=== PATIENT | male | born 1960 | race Caucasian/White ===

== ENCOUNTER → 2016-06-29 | Day surgery (SDC) | payer MEDICAID ==
[~2016-06-29] MED LIST: FLEXERIL10 MG PO; MULTI VITAMIN1 EACH PO; NO MEDICATIONS; VOLTAREN50 MG PO
--- NOTE | ~2016-06-29 | OR ---
Unit #: [id number] #: [id number] Patient: CAIN CALDWELL [id number] [address] [place], [place] [address] [id number] O MR#: [id number] NAME: CAIN CALDWELL ROOM: Date of Procedure: 06/29/2016 Admission Date: 06/29/2016 Surgeon: Popeye Gates M.D. : 1960 Attending Physician: Popeye Gates M.D. Primary Care Physician: Primary Care Physician No OPERATIVE REPORT PROCEDURE PERFORMED Colonoscopy with snare polypectomy. INDICATIONS FOR PROCEDURE The patient with average risk for colorectal cancer, here for screening colonoscopy. MEDICATIONS Monitored anesthesia. POSTOPERATIVE FINDINGS Polyp, sigmoid colon, 5 to 6 mm, snared and sent for histopathology. Rest of the colon exam to cecum was normal. PLAN Repeat colonoscopy in 5 years if adenomatous. DESCRIPTION OF PROCEDURE The patient was explained of the procedure, risks, and benefits along with risks and benefits of anesthesia. He was brought to the endoscopy room. Propofol anesthesia was given. Rectal exam was done, which was normal. Colonoscope was lubricated, passed up the rectum, advanced under direct vision all the way to cecum. Cecum was identified by ileocecal valve and appendiceal orifice. I then started to pull the scope out carefully looking. Polyp in sigmoid colon was snared and sent for histopathology. I retroflexed in the rectum, small hemorrhoids seen. Scope was gently pulled out. He tolerated it well. Dictated by... Jasiel Campos/charisma TD: 06/30/2016 00:08 JOB #: [id number] CC: Ivania Cuellar M.D. Unit #: [id number] #: [id number] Patient: CAIN CALDWELL OPERATIVE REPORT Page 1 of 1 X Popeye Gates MD X PROCEDURE OPERATIVE NOTE
== END | disposition home or self-care (01) ==
LOC: COPS 11:26
PROVIDERS: Internal Medicine
PROC: 0DBN8ZX Excision of Sigmoid Colon, Via Natural or Artificial Opening Endoscopic, Diagnostic (ICD-10-PCS; principal; 2016-06-29 13:00)
DX: Z12.11 Encounter for screening for malignant neoplasm of colon (principal); K63.5 Polyp of colon; K64.9 Unspecified hemorrhoids; F17.200 Nicotine dependence, unspecified, uncomplicated; Z88.8 Allergy status to other drugs, medicaments and biological substances; Z79.899 Other long term (current) drug therapy
CPT/HCPCS: 88305; J2250

== ENCOUNTER 2016-07-03 16:37 | Emergency (ER) | payer MEDICAID ==
--- NOTE | ~2016-07-03 | US115 ---
[facility] A Service of [facility] RADIOLOGY TEXT RESULTS PATIENT: CAIN CALDWELL LOCATION: [facility] : 58 UNIT #: [id number] AGE: [address]: Emmy Villarreal MD SEX: M ORDER DR: [id number] [facility] [address] [place], [place] [address] [id number] E MR#: [id number] Acc #: [id number] NAME: CAIN CALDWELL : 1960 SEX: M STUDY DATE/TIME: 07/03/2016 17:29 UNIT: [facility] ROOM: STUDY DESCRIPTION: US Scrotum and Contents Attending Physician: Emmy Villarreal M.D. Ordering Physician: Emmy Villarreal M.D. Primary Care Physician: Ivania Cuellar M.D. MEDICAL IMAGING REPORT This report is preliminary unless electronic signature is present EXAM Ultrasound of scrotum and contents with color flow Doppler. DATE OF EXAM 07/03/2016 HISTORY Bilateral testicular swelling for 2 weeks. FINDINGS Oswald-scale images of the scrotum were obtained, as well as Doppler waveform, spectral analysis and color flow Doppler imaging. The right testicle measured 3.1 cm x 1.9 cm x 3.2 cm, while the left testicle measured 2.6 cm x 2 cm x 2.7 cm. Both testes are homogeneous in echotexture and demonstrate no cystic or solid mass lesions. Color flow Doppler images show normal blood flow to both testes. Each epididymis appears normal. There are small bilateral hydroceles. IMPRESSION 1. The testes are normal bilaterally. No testicular mass is seen. Color flow Doppler images show normal blood flow to each testicle. 2. Small bilateral hydroceles. Dictated by... Emanuel Murrieta M.D. THIS IS AN ELECTRONICALLY VERIFIED REPORT Emanuel Murrieta M.D. at 07/04/2016 2:12 PM VU/taya [facility] A Service of [facility] RADIOLOGY TEXT RESULTS PATIENT: CAIN CALDWELL LOCATION: [facility] #: [id number] : 58 UNIT #: [id number] AGE: [address]: Emmy Villarreal MD SEX: M ORDER DR: TD: 07/03/2016 20:58 JOB #: [id number] MEDICAL IMAGING REPORT Page 1 of 1 COPY
[2016-07-03 17:05] LABS: URINE SOURCE CLEAN CATCH
[2016-07-03 17:13] LABS: URINE APPEARANCE CLEAR; URINE BILIRUBIN NEG (NEG); URINE BLOOD NEG (NEG); URINE COLOR YELLOW; URINE GLUCOSE NEG (NEG); URINE KETONE NEG (NEG); URINE LEUKOCYTE ESTERASE NEG (NEG); URINE NITRATE NEG (NEG); URINE PH 6.5 (5-8); URINE PROTEIN NEG (NEG)
[2016-07-03 17:23] LABS: CULTURE INDICATED? NO
[2016-07-06 09:38] LABS: CHLAMYDIA TRACH Not Detected (Not Detected); N GONOR Not Detected (Not Detected)
== END 2016-07-03 19:50 | disposition home or self-care (01) ==
LOC: CED 16:37
PROVIDERS: Emergency Medicine
DX: N45.1 Epididymitis (principal); I10 Essential (primary) hypertension; F17.210 Nicotine dependence, cigarettes, uncomplicated
CPT/HCPCS: 76870; 81003; 87491; 87591; 93976; 96372; 99284; J0696